=== PATIENT | female | born 1940 | race African-American/Black ===

== ENCOUNTER 2017-06-22 15:54 | Emergency (ER) | payer MEDICARE ==
[~2017-06-22] VITALS: Ht 163.8 cm; Wt 48.5 kg
[2017-06-22 15:54] VITALS: BP 127/67
[~2017-06-22 15:54] MED LIST: ALPR1TAB6 PO; LISI10TA2 PO
--- NOTE | 2017-06-22 16:43 | PHYS DOC ---
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 Patient states this took place prior to arrival while she was shopping at a local mall. The patient states that her symptoms came on suddenly. Patient states currently she has no symptoms and feels much better. The patient is currently undergoing active chemotherapy treatment for pancreatic cancer. Patient states that she had blood work drawn 2 days ago which showed neutropenia. The patient was placed in neutropenic precautions prior to my patient interview. The patient states that she is not experiencing any chest pain, abdominal pain, nausea, or vomiting. Patient states that she last received chemotherapy treatment within the last 5 days. Patient states she had a similar episode yesterday which passed after an hour. Review of Systems Review of Systems Constitutional: Lightheadedness, currently resolved[] Eyes: Denies change in visual acuity, redness, or eye pain [] HENT: Denies nasal congestion or sore throat [] Respiratory: Denies cough or shortness of breath [] Cardiovascular: Denies chest pain or edema[] GI: Denies abdominal pain, nausea, vomiting, bloody stools or diarrhea [] : Denies dysuria or hematuria [] Musculoskeletal: Denies back pain or joint pain [] Integument: Denies rash or skin lesions [] Neurologic: Denies headache, focal weakness or sensory changes [] All other systems were reviewed and found to be within normal limits, except as documented in this note. Allergies Allergies Allergies Coded Allergies Type Severity Reaction Last Updated Verified No Known Drug Allergies 12/11/14 No Physical Exam Physical Exam Constitutional: Alert, afebrile, cachectic appearance, no acute distress. [] HENT: Normocephalic, atraumatic, bilateral external ears normal, oropharynx moist, no oral exudates, nose normal. [] Eyes: PERRLA, EOMI, conjunctiva normal, no discharge. [] Neck: Normal range of motion, no tenderness, supple, no stridor. [] Cardiovascular:Heart rate regular rhythm, no murmur [] Lungs & Thorax: Bilateral breath sounds clear to auscultation [] Abdomen: Bowel sounds normal, soft, no tenderness, no masses, no pulsatile masses. [] Skin: Warm, dry, no erythema, no rash. [] Back: No tenderness, no CVA tenderness. [] Extremities: No tenderness, no cyanosis, no clubbing, ROM intact, no edema. [] Neurologic: Alert and oriented X 3, normal motor function, normal sensory function, no focal deficits noted. [] Current Patient Data Vital Signs Vital Signs Date Time Temp Pulse Resp B/P (MAP) Pulse Ox O2 Delivery O2 Flow Rate FiO2 06/22/17 15:54 98.3 87 18 127/67 (87) 98 Room Air 98.3 Lab Values Laboratory Tests Test 06/22/17 16:10 Glucose (Fingerstick) 133 mg/dL (70-99) H EKG EKG Interpreted by me: Heart rate 92, sinus rhythm, occasional PACs, no acute ST/T- wave abnormalities present[] Radiology/Procedures Radiology/Procedures Not performed[] Course & Med Decision Making Course & Med Decision Making Pertinent Labs and Imaging studies reviewed. (See chart for details) The patient's orthostatic vital signs were reviewed and were normal. The patient has no complaints at this time. The patient states that she wants to go home and does not wish to have any testing done in the emergency department. I did talk with the patient regarding need for oral hydration at home as I do feel this is the primary cause of the patient's symptomology at this time. I advised that the patient follow-up in one to 2 days with her primary doctor for reevaluation. Advised return emergency department for any worsening symptoms. Patient voiced understanding and in agreement with treatment plan. Dragon Disclaimer Dragon Disclaimer This electronic medical record was generated, in whole or in part, using a voice recognition dictation system. Departure Departure Impression: Primary Impression: Near syncope Disposition: 01 HOME, SELF-CARE Condition: IMPROVED Referrals: ANUP MIMS (PCP) Patient Instructions: Near-Syncope Additional Instructions: Follow-up with your primary doctor in 1-2 days for reevaluation. Return to the emergency department for any worsening symptoms. VERNELL PICHARDO MD Jun 22, 2017 16:43
--- NOTE | 2017-06-23 07:07 | EKG ---
[facility] [address] [place] [address] Test Date: 2017-06-22 Test Time: 16:04:01 Pat Name: SANDI RIVAS Department: Room: Gender: F Patient Services Representative: : [id number] Requested By: VERNELL PICHARDO Order Number: [id number] Reading MD: Peterson Kaur MD Measurements Intervals [place] Rate: 91 P: RI: QRS: 43 QRSD: 76 T: 56 QT: 384 QTc: 480 Interpretive Statements SUSPECT SR WITH PAC'S Electronically Signed On 06-26-2017 10:48:52 [employer]ICLE PRINTER by Peterson Kaur MD
== END 2017-06-22 16:52 | disposition home or self-care (01) ==
LOC: ER 15:54
DX: R55 Syncope and collapse (principal); R42 Dizziness and giddiness; I10 Essential (primary) hypertension; J45.909 Unspecified asthma, uncomplicated
CPT/HCPCS: 82962; 93005; 99285-25